=== PATIENT | female | born 1945 | race Caucasian/White ===

== ENCOUNTER 2022-10-09 12:35 | Outpatient (CLI) | payer MEDICARE, OTHER | END 2022-10-09 12:36 | disposition home or self-care (01) | LOC: BICULT 12:35 | PROVIDERS: ATTEND Family Medicine | DX: N63.21 Unspecified lump in the left breast, upper outer quadrant (principal); N64.89 Other specified disorders of breast | CPT/HCPCS: 76642; 77066; G0279 ==

== ENCOUNTER 2023-04-30 10:02 | Outpatient (CLI) | payer OTHER, MEDICAID | END 2023-04-30 10:03 | disposition home or self-care (01) | LOC: BICMAMMO 10:02 | PROVIDERS: ATTEND Family Medicine | DX: R92.8 Other abnormal and inconclusive findings on diagnostic imaging of breast (principal) | CPT/HCPCS: 77065; G0279 ==

== ENCOUNTER 2024-06-06 09:52 | Outpatient (CLI) | payer OTHER, MEDICAID | END 2024-06-06 09:53 | disposition home or self-care (01) | LOC: BICMAMMO 09:52 | PROVIDERS: ATTEND Family Medicine | DX: Z12.31 Encounter for screening mammogram for malignant neoplasm of breast (principal); R10.32 Left lower quadrant pain; R93.89 Abnormal findings on diagnostic imaging of other specified body structures; Z80.41 Family history of malignant neoplasm of ovary | CPT/HCPCS: 76856; 77063; 77067 ==